=== PATIENT | male | born 1950 | race African-American/Black ===

== ENCOUNTER 2022-01-13 11:46 | Outpatient (CLI) | payer MEDICARE, OTHER | END 2022-01-13 11:47 | disposition home or self-care (01) | LOC: LABBT 11:46 | PROVIDERS: ATTEND Specialist | DX: Z01.810 Encounter for preprocedural cardiovascular examination (principal); I87.2 Venous insufficiency (chronic) (peripheral); N18.6 End stage renal disease | CPT/HCPCS: 93005; 93010 ==

== ENCOUNTER 2022-01-18 08:32 | Day surgery (SDC) | payer MEDICARE, OTHER ==
[2022-01-10 13:01] VITALS: BMI 36.9
[2022-01-18] MEDS ORDERED: Acetaminophen 500 MG TAB ONE (08:45)
[2022-01-18] MEDS ORDERED: Ketorolac Tromethamine 30 MG/ML VIAL ONE (08:45)
[2022-01-18] MEDS ORDERED: Lidocaine 1% MPF 2 ML VIAL ONE (09:11)
[2022-01-18] MEDS ORDERED: ceFAZolin 2 GM/Dextrose 50 ML IVPB ONE (09:12)
[2022-01-18 09:38] LABS: #Eosinphils 0.7 thou/uL (0.0-0.7); #Lymphocytes 1.7 thou/uL (1.20-3.40); #Monocytes 0.9 thou/uL (0.11-0.59); #Neutrophils 9.3 thou/uL (1.40-6.50); %Basophils 0.1 % (0.0-1.0); %Eosinophils 5.3 % (0.0-10.0); %Lymphocytes 13.5 % (21.0-51.0); %Neutrophils 74.2 % (42.0-75.0); Mean Corpuscular HGB CONC 32.4 g/dL (32.0-36.0); Mean Corpuscular Hemoglobin 30.4 pg (27.0-31.0); Mean Corpuscular Volume 93.9 fL (78.0-98.0); Mean Platelet Volume 6.8 fL (7.4-10.4); Platelet Count 350 thou/uL (130-400); RBC Distribution Width 13.2 % (11.5-14.5); White Blood Cell (WBC) Count 12.5 thou/uL (4.8-10.8)
[2022-01-18 09:59] LABS: Anion Gap 18 mmol/L (10-20); BUN (Urea Nitrogen) 42 mg/dL (8.4-25.7); Calc. Creatinine Clearance 7 mL/min (70-130); Calcium 9.5 mg/dL (7.8-10.44); Carbon Dioxide 26 mmol/L (23-31); Chloride 95 mmol/L (98-107); Glucose 110 mg/dL (80-115); Potassium 4.3 mmol/L (3.5-5.1); Sodium 135 mmol/L (136-145)
[2022-01-18] MEDS ORDERED: Bupivacaine 0.25% HCL 30 ML VIAL ONE (10:39)
[2022-01-18] MEDS ORDERED: Xylocaine 1% w/ Epi 1:100K 10 ML VIAL ONE (10:39)
[2022-01-18] MEDS ORDERED: Ketamine 50 MG/ML (10ML VIAL) ONE (10:40)
[2022-01-18] MEDS ORDERED: Fentanyl 250 MCG/5 ML VIAL ONE (10:40)
[2022-01-18] MEDS ORDERED: Midazolam HCl 2 mg/2 ml Vial ONE (10:40)
[2022-01-18] MEDS ORDERED: PROPOFOL 0 ML ONE (10:44)
== END 2022-01-18 13:15 | disposition home or self-care (01) ==
LOC: SDC 08:32
PROVIDERS: ATTEND Specialist
PROC: 0JH60WZ Insertion of Totally Implantable Vascular Access Device into Chest Subcutaneous Tissue and Fascia, Open Approach (ICD-10-PCS; principal; 2022-01-18)
PROC: 02HV33Z Insertion of Infusion Device into Superior Vena Cava, Percutaneous Approach (ICD-10-PCS; 2022-01-18)
DX: I87.2 Venous insufficiency (chronic) (peripheral) (principal); I12.0 Hypertensive chronic kidney disease with stage 5 chronic kidney disease or end stage renal disease; E11.22 Type 2 diabetes mellitus with diabetic chronic kidney disease; N18.6 End stage renal disease; E11.51 Type 2 diabetes mellitus with diabetic peripheral angiopathy without gangrene; Z87.891 Personal history of nicotine dependence; Z79.4 Long term (current) use of insulin; Z79.82 Long term (current) use of aspirin; Z79.899 Other long term (current) drug therapy; Z88.2 Allergy status to sulfonamides; Z88.5 Allergy status to narcotic agent; Z89.021 Acquired absence of right finger(s); Z89.511 Acquired absence of right leg below knee; Z89.512 Acquired absence of left leg below knee; Z90.5 Acquired absence of kidney; Z99.2 Dependence on renal dialysis
CPT/HCPCS: 36561; 71045; 80048; 85025; C1788; 36415; J0690; J1642; J1885; J2250; J2704; J3010; S0020